=== PATIENT | female | born 1985 | race African-American/Black ===

== ENCOUNTER 2019-08-06 11:04 | Emergency (ER) | payer OTHER ==
[~2019-08-06] VITALS: Ht 167.6 cm; Wt 57.0 kg
[2019-08-06] MEDS ORDERED: SODIUM CHLORIDE 0.9% 1,000 ML IV ONE (12:24)
[2019-08-06] MEDS ORDERED: KETOROLAC 15MG/ML VIAL IV ONE (12:30)
[2019-08-06] MEDS ORDERED: DIPHENHYDRAMINE 50MG/ML VIAL IV ONE (12:30)
[2019-08-06] MEDS ORDERED: METOCLOPRAMIDE HCL 10MG/2ML VIAL IV ONE (12:30)
[2019-08-06 13:06] LABS: BASOPHILS % 0.4 % (0.0-2.0); EOSINOPHILS % 0.1 % (0.0-5.0); HEMATOCRIT. 44.5 % (36.0-48.0); HEMOGLOBIN. 14.9 g/dL (12.0-16.0); LYMPHOCYTES % 8.3 % (20.0-50.0); MEAN CORPUSCULAR HEMOGLOBIN 30.2 pg (28.0-32.0); MEAN CORPUSCULAR VOLUME 90.2 fL (81.0-99.0); MEAN PLATELET VOLUME 7.7 fl (7.4-10.4); NEUTROPHILS % 87.2 % (40.0-76.0); PLATELET 187 x1000/uL (130-400); RED BLOOD CELL COUNT 4.94 mill/uL (4.2-5.4); RED CELL DISTRIBUTION WIDTH 12.5 % (11.6-14.6)
[2019-08-06 13:17] LABS: CHLORIDE 106 mEq/L (98-107)
[2019-08-06 13:33] LABS: HCG SCREEN NEGATIVE
[2019-08-06] MEDS ORDERED: ONDANSETRON 4MG ODT PO ONE (15:30)
[2019-08-06] MEDS ORDERED: IBUPROFEN 400MG TABLET PO ONE (15:30)
[2019-08-06] MEDS ORDERED: BUTALBITAL/ACETAMINOPHEN/CAFFEINE 50/325/40MG TABLET PO ONE (16:15)
[2019-08-06 16:44] VITALS: BP 124/78
== END 2019-08-06 16:48 | disposition home or self-care (01) ==
LOC: ER 11:04
DX: G43.909 Migraine, unspecified, not intractable, without status migrainosus (principal); Z88.0 Allergy status to penicillin; Z88.2 Allergy status to sulfonamides
CPT/HCPCS: 36415; 80053; 81025; 83690; 84703; 85025; 96361; 96374; 96375; 99283; J1200; J1885; J2765; J7030; Q0162; Z7610